=== PATIENT | male | born 1985 | race Caucasian/White ===

== ENCOUNTER 2017-08-04 11:43 | Outpatient (CLI) | payer BC ==
[2017-08-04 19:36] LABS: BILIRUBIN,URINE NEGATIVE (NEGATIVE)
[2017-08-04 19:39] LABS: BASOPHILS % (AUTO) 0.4 %; EOSINOPHILS # (AUTO) 0.1 10^3/uL (0.0-0.7); EOSINOPHILS % (AUTO) 1.1 %; HGB - HEMOGLOBIN 16.6 g/dL (14.0-18.0); LYMPHOCYTES # (AUTO) 1.7 10^3/uL (1.5-3.5); LYMPHOCYTES % (AUTO) 24.5 %; MEAN CORPUSCULAR HGB CONC 33.8 g/dL (32.0-36.0); MEAN CORPUSCULAR VOLUME 91.7 fL (80.0-94.0); MEAN PLATELET VOLUME 8.7 fL (7.4-11.4); MONOCYTES # (AUTO) 0.5 10^3/uL (0.0-1.0); MONOCYTES % (AUTO) 6.7 %; NEUTROPHILS # (AUTO) 4.6 10^3/uL (1.5-6.6); NEUTROPHILS % (AUTO) 67.3 %; RED BLOOD COUNT 5.34 10^6/uL (4.70-6.10); UNCORRECTED WHITE BLOOD COUNT 6.8 x10^3/uL; WHITE BLOOD COUNT 6.8 x10^3/uL (4.8-10.8)
[2017-08-04 19:53] LABS: UR CULTURE IF IND NOT INDICATED; WBC,URINE 0-3 /HPF (0-3)
[2017-08-04 20:12] LABS: ALBUMIN/GLOBULIN RATIO 1.9 (1.0-2.2); BILIRUBIN,TOTAL 1.2 mg/dL (0.2-1.0); CALCIUM 9.1 mg/dL (8.5-10.3); CREATININE 1.1 mg/dL (0.6-1.2); POTASSIUM 3.9 mmol/L (3.5-5.0)
[2017-08-04 20:20] LABS: H. PYLORI IGG ANTIBODY Negative (Negative); HPYLORI NEG QC Negative (Negative); HPYLORI POS QC POSITIVE (Positive)
== END 2017-08-04 11:44 | disposition home or self-care (01) ==
LOC: LAB.WCP 11:43
PROVIDERS: ATTEND Family Medicine
DX: N20.0 Calculus of kidney (principal); R10.9 Unspecified abdominal pain
CPT/HCPCS: 36415; 80053; 81001; 83690; 85025; 87086; 87339

== ENCOUNTER 2019-05-16 09:09 | Outpatient (CLI) | payer BC ==
[2019-05-16 12:49] LABS: BASOPHILS % (AUTO) 0.7 %; EOSINOPHILS # (AUTO) 0.1 10^3/uL (0.0-0.7); EOSINOPHILS % (AUTO) 2.2 %; HGB - HEMOGLOBIN 16.3 g/dL (14.0-18.0); LYMPHOCYTES # (AUTO) 1.5 10^3/uL (1.5-3.5); LYMPHOCYTES % (AUTO) 34.4 %; MEAN CORPUSCULAR HEMOGLOBIN 31.3 pg (27.0-31.0); MEAN CORPUSCULAR VOLUME 91.9 fL (80.0-94.0); MEAN PLATELET VOLUME 10.3 fL (7.4-11.4); MONOCYTES # (AUTO) 0.5 10^3/uL (0.0-1.0); MONOCYTES % (AUTO) 10.6 %; NEUTROPHILS # (AUTO) 2.3 10^3/uL (1.5-6.6); NEUTROPHILS % (AUTO) 51.9 %; PLT - PLATELET COUNT 188 10^3/uL (130-450); RED BLOOD COUNT 5.21 10^6/uL (4.70-6.10); RED CELL DISTRIBUTION WIDTH 11.9 % (12.0-15.0); WHITE BLOOD COUNT 4.5 x10^3/uL (4.8-10.8)
[2019-05-16 13:26] LABS: ALBUMIN 4.6 g/dL (3.2-5.5); ALBUMIN/GLOBULIN RATIO 1.6 (1.0-2.2); BILIRUBIN,TOTAL 0.7 mg/dL (0.2-1.0); CALCIUM 9.4 mg/dL (8.5-10.3); TOTAL PROTEIN 7.4 g/dL (6.7-8.2)
== END 2019-05-16 23:59 | disposition home or self-care (01) ==
LOC: LAB.WCP 09:09
PROVIDERS: ATTEND Family Medicine
DX: L29.9 Pruritus, unspecified (principal)
CPT/HCPCS: 36415; 80053; 85025

== ENCOUNTER 2021-11-03 09:10 | Outpatient (CLI) | payer OTHER ==
[2021-11-03 12:45] LABS: BASOPHILS % (AUTO) 1.1 %; EOSINOPHILS # (AUTO) 0.1 10^3/uL (0.0-0.7); EOSINOPHILS % (AUTO) 2.9 %; HCT - HEMATOCRIT 45.1 % (42.0-52.0); HGB - HEMOGLOBIN 15.3 g/dL (14.0-18.0); LYMPHOCYTES # (AUTO) 1.1 10^3/uL (1.5-3.5); LYMPHOCYTES % (AUTO) 38.2 %; MEAN CORPUSCULAR HEMOGLOBIN 31.1 pg (27.0-31.0); MEAN CORPUSCULAR HGB CONC 33.9 g/dL (32.0-36.0); MEAN CORPUSCULAR VOLUME 91.7 fL (80.0-94.0); MEAN PLATELET VOLUME 10.5 fL (7.4-11.4); MONOCYTES # (AUTO) 0.2 10^3/uL (0.0-1.0); MONOCYTES % (AUTO) 7.9 %; NEUTROPHILS # (AUTO) 1.4 10^3/uL (1.5-6.6); NEUTROPHILS % (AUTO) 49.9 %; PLT - PLATELET COUNT 183 10^3/uL (130-450); RED BLOOD COUNT 4.92 10^6/uL (4.70-6.10); RED CELL DISTRIBUTION WIDTH 11.8 % (12.0-15.0); WHITE BLOOD COUNT 2.8 x10^3/uL (4.8-10.8)
[2021-11-03 13:10] LABS: THYROID STIMULATING HORMONE 1.74 uIU/mL (0.34-5.60)
[2021-11-03 13:18] LABS: ALBUMIN 4.3 g/dL (3.2-5.5); ALBUMIN/GLOBULIN RATIO 1.7 (1.0-2.2); ALKALINE PHOSPHATASE 80 IU/L (42-121); ALT ALANINE AMINOTRANSFERASE 24 IU/L (10-60); AST ASPARTATE AMINOTRANSFERASE 23 IU/L (10-42); BILIRUBIN,TOTAL 1.2 mg/dL (0.2-1.0); BUN - BLOOD UREA NITROGEN 9 mg/dL (6-20); CARBON DIOXIDE - CO2 28 mmol/L (21-32); CHLORIDE 103 mmol/L (101-111); CHOL/HDL RATIO 3.5 (<5.0); CHOLESTEROL 149 mg/dL; CREATININE 1.1 mg/dL (0.6-1.2); GFR - MDRD 75 (>89); GLUCOSE 96 mg/dL (70-100); HDL CHOLESTEROL 42 mg/dL; POTASSIUM 4.4 mmol/L (3.5-5.0); SODIUM 138 mmol/L (135-145); TOTAL PROTEIN 6.9 g/dL (6.7-8.2); TRIGLYCERIDES 39 mg/dL
== END 2021-11-03 23:59 | disposition home or self-care (01) ==
LOC: LAB.WCP 09:10
PROVIDERS: ATTEND Internal Medicine
DX: R19.4 Change in bowel habit (principal); Z13.220 Encounter for screening for lipoid disorders; Z13.1 Encounter for screening for diabetes mellitus
CPT/HCPCS: 36415; 80053; 80061; 81599; 82274; 83721; 83993; 84443; 85025

== ENCOUNTER 2021-11-04 08:00 | Outpatient (CLI) | payer OTHER | END 2021-11-04 23:59 | disposition home or self-care (01) | LOC: LAB.WCP 08:00 | PROVIDERS: ATTEND Internal Medicine | DX: R19.4 Change in bowel habit (principal) | CPT/HCPCS: 83993 ==

== ENCOUNTER 2022-03-24 17:35 | Outpatient (CLI) | payer OTHER ==
--- NOTE | 2022-03-25 09:54 | XRAY Report ---
PROCEDURE: Hand 3 View LT INDICATIONS: PAIN IN LEFT FINGER TECHNIQUE: 3 views of the hand(s) acquired. COMPARISON: None FINDINGS: Bones: There is a subtle linear lucency involving the dorsal aspect of the ring finger middle phalan x with overlying soft tissue swelling centered at the proximal interphalangeal joint. Otherwise, no o ther fractures or dislocations. No suspicious bony lesions. Soft tissues: No suspicious soft tissue calcifications. IMPRESSION: Soft tissue swelling of the left ring finger centered predominantly over the proximal interphalangeal joint with possible nondisplaced fracture at the dorsal aspect of the ring finger middle phalanx. Re commend immobilization and repeat imaging in 10-14 days. Reviewed by: Ranjan Crowley MD on 03/25/2022 9:53 AM PDT Approved by: Ranjan Crowley MD on 03/25/2022 9:53 AM PDT Station ID: [id number]
== END 2022-03-24 17:36 | disposition home or self-care (01) ==
LOC: DI.N 17:35
PROVIDERS: ATTEND Internal Medicine
DX: M79.645 Pain in left finger(s) (principal); M79.89 Other specified soft tissue disorders